=== PATIENT | male | born 1965 | race Caucasian/White ===

== ENCOUNTER 2020-08-05 16:11 | Observation (INO) | payer OTHER ==
[~2020-08-05 16:11] MED LIST: Dexamethasone 20 MG/5 ML VIAL ONE; Ketorolac Tromethamine 30 MG/ML VIAL ONE; Lidocaine 1% PF 5 ML VIAL ONE; Ondansetron PF 4 MG/2 ML Vial ONE; PROPOFOL 200 MG/20 ML VIAL ONE; ePHEDrine 50 MG/ML VIAL ONE
[2020-08-05] MEDS ORDERED: Bacitracin Zinc Ointment 30 gm TUBE ONE (17:44)
[2020-08-05] MEDS ORDERED: Bupivacaine PF 0.5% 30 ML VIAL ONE (17:44)
[2020-08-05] MEDS ORDERED: Sodium Chloride 0.9% 30 ML ONE (17:45)
[2020-08-05] MEDS ORDERED: Acetaminophen 325 MG TAB PO PRN (19:07)
[2020-08-05] MEDS ORDERED: Ondansetron PF 4 MG/2 ML Vial SLOW IVP PRN (19:07)
[2020-08-05] MEDS ORDERED: traMADol HCl 50 MG TAB PO PRN (19:07)
[2020-08-05] MEDS ORDERED: Promethazine HCl 25 MG/ML VIAL IM PRN ×2 (19:07→21:36)
[2020-08-05] MEDS ORDERED: HYDROcodone/Acetaminophen 5/325 mg Tablet PO PRN (19:07)
[2020-08-05] MEDS ORDERED: Morphine 4 MG/ML VIAL SLOW IVP PRN (19:07)
[2020-08-05] MEDS ORDERED: Milk Of Magnesia 30 ML UDCUP PO PRN (19:07)
[2020-08-05] MEDS ORDERED: Bisacodyl 10 MG SUPP PR PRN (19:07)
[2020-08-05] MEDS ORDERED: Meperidine HCl/PF 25 MG/ML VIAL IM PRN (19:12)
[2020-08-05] MEDS ORDERED: Ketorolac Tromethamine 30 MG/ML VIAL IVP PRN (19:12)
[2020-08-05] MEDS ORDERED: TETANUS AND DIPHTHERIA TOX/PF 0.5 ML DISP.SYRIN IM SCH (19:15)
[2020-08-05] MEDS ORDERED: Communication Order-Pharmacy FS PRN (19:15)
[2020-08-05] MEDS ORDERED: Fentanyl 100 MCG/2 ML VIAL ONE (19:18)
[2020-08-05] MEDS ORDERED: HYDROmorphone 0.5 MG/0.5 ML SYRINGE ONE (19:18)
[2020-08-05 19:56] LABS: SARS-CoV-2 NAA Rapid Test Not Detected (NotDetected)
[2020-08-05] MEDS ORDERED: Mineral Oil Sterile 10ML 10 ML UDCUP ONE (20:41)
[2020-08-05] MEDS ORDERED: Vancomycin 1 GM in Premix Bag 1 BAG IVPB SCH (21:00)
[2020-08-05] MEDS ORDERED: Promethazine HCl 25 MG/ML VIAL SLOW IVP PRN (21:36)
[2020-08-05] MEDS ORDERED: Meperidine HCl/PF 25 MG/ML VIAL SLOW IVP PRN (21:36)
[2020-08-05] MEDS ORDERED: Ondansetron HCl/PF 4 MG/2 ML Vial IVP PRN (21:36)
[2020-08-05 23:06] VITALS: BMI 28.5
[2020-08-06] MEDS: Sodium Chloride 0.9% 100 ML IV SCH ×3 (00:02→08:49)
[2020-08-06] MEDS: Aspirin 81 mg Enteric Coated Tablet PO SCH ×2 (00:07→08:38)
[2020-08-06 01:38] VITALS: TEMP 98.3
--- NOTE | 2020-08-06 01:50 | OP ---
DATE OF PROCEDURE: 08/05/2020 PREOPERATIVE DIAGNOSES: 1. Left thumb open distal phalanx fracture with bone loss, oblique loss on the unilateral side of the thumb distal phalanx. 2. Open distal phalanx fracture, grade 2. 3. Bone loss with nailbed loss in unilateral aspect of the thumb, ulnar aspect. 4. 3.5 x 2 cm wound. POSTOPERATIVE DIAGNOSES: 1. Left thumb open distal phalanx fracture with bone loss, oblique loss on the unilateral side of the thumb distal phalanx. 2. Open distal phalanx fracture, grade 2. 3. Bone loss with nailbed loss in unilateral aspect of the thumb, ulnar aspect. 4. 3.5 x 2 cm wound with some mild contamination of small particles of wood seen in the wound. TOURNIQUET TIME: 17 minutes. ESTIMATED BLOOD LOSS: 10 mL. SPECIMEN: None. PROCEDURES PERFORMED: 1. Debridement of wound, 4.5 x 2 cm. 2. Closure of 3 cm portion of wound. 3. 2 x 1 cm full-thickness skin graft. 4. Debridement of fracture distal phalanx. 5. Open treatment, distal phalanx fracture. 6. Oblique nail, soft tissue and unilateral thumb soft tissue loss. DESCRIPTION OF PROCEDURE: After successful general endotracheal anesthesia, the left upper extremity was prepped and draped. The patient then had the time-out done appropriately. We exsanguinated the limb and inflated the tourniquet to 250 mmHg pressure. We then injected the area with projected skin graft harvest and antecubital fossa with 10 mL of 0.5% Marcaine with epinephrine and used the same Marcaine without epinephrine and 10 mL to thumb metacarpophalangeal joint level block. We removed the nail. We visualized the nail bed and saw there was only a small amount of bone exposed. We debrided this as related to the fracture with a curette, Eagle blade, and 3 L of normal saline and Pulsavac with antibiotics inside. There were few small particles of what appeared to be wood debris that were removed grossly. Once we finished debridement of open fracture, then debrided the wound using the tenotomy scissors in addition to the other instruments listed. At this point, we could see that he had approximately 3 cm of the 4.5 cm wound that could be closed. We did not want to close it too tight near the actual gap in the soft tissue as we did not want to create much of a hook nail deformity, so we then measured the appropriate area, where now all the bone was covered with the 4-0 nylon wound closure performed so far and we now had about a 2 x 1 cm gap. A 2 x 1 cm full-thickness skin graft was harvested from the antecubital fossa. The wound was then closed with a running 4-0 Monocryl and a 4-0 nylon epidermal closure. We gave additional 5 mL of Marcaine in both the thumb metacarpophalangeal block level and the antecubital fossa block and proceeded to defat the skin graft and place it using four bolster sutures with 4-0 nylon and a running 5-0 chromic. A 5-0 chromic gave excellent alignment without undue pressure on the nail bed, and we were able to bolster this with bacitracin against the graft, Adaptic, mineral oil-soaked cotton ball and then the bolster was tied with excellent tension. The tourniquet had been deflated, and the color was pink, hemostasis was obtained. We then debrided the nail bed, cut it down to approximately 50% in size in appropriate flat rectangle and placed this over bacitracin and Adaptic under the nail fold. Bacitracin and Adaptic were then placed over the donor site, and a bulky dressing was applied in each. Two Kerlix were used, one at the elbow wound and one at the hand/thumb. Then, a splint was applied short-arm with Mat wrap from distal third of the arm across the elbow to the tip of the thumb site was accomplished. The patient left the operating room without evidence of anesthetic or operative complication. Job ID: [id number]
[2020-08-06] MEDS: Vancomycin HCl 1.25 GM in Sodium Chloride 0.9% 250 ML 250 ML IVPB SCH ×2 (01:54→08:46)
[2020-08-06] MEDS ORDERED: FLU VACC QS2020-21(6MOS UP)/PF 60 MCG/0.5 ML SYRINGE IM ONE (09:00)
[2020-08-06 11:41] VITALS: BP 119/71
== END 2020-08-06 12:34 | disposition home or self-care (01) ==
LOC: ERS 16:11 → ERHOLD 19:10 → T4-B 08-06
PROVIDERS: ADMIT Specialist; ATTEND Specialist
PROC: 0PBS0ZZ Excision of Left Thumb Phalanx, Open Approach (ICD-10-PCS; principal; 2020-08-05)
PROC: 0HRGX73 Replacement of Left Hand Skin with Autologous Tissue Substitute, Full Thickness, External Approach (ICD-10-PCS; 2020-08-05)
DX: S62.522B Displaced fracture of distal phalanx of left thumb, initial encounter for open fracture (principal); F17.220 Nicotine dependence, chewing tobacco, uncomplicated; Z20.828 Contact with and (suspected) exposure to other viral communicable diseases; W27.0XXA Contact with workbench tool, initial encounter
CPT/HCPCS: 0240U; 90471; 90662; 96374; 96376; G0008; G0378; J0690; J1100; J1170; J1885; J2405; J2704; J3010; J3370; J3490; J7050; S0020